=== PATIENT | female | born 1970 | race Hispanic/Latino ===

== ENCOUNTER 2018-12-11 14:46 | Emergency (ER) | payer BC ==
[~2018-12-11] VITALS: Ht 167.6 cm; Wt 86.2 kg
[2018-12-11 16:26] LABS: CLARITY,URINE SL CLOUDY (CLEAR); COLOR,URINE YELLOW (YELLOW)
[2018-12-11 16:27] LABS: BILIRUBIN,URINE NEGATIVE (NEGATIVE); KETONES,URINE NEGATIVE (NEGATIVE); LEUKOCYTE ESTERASE ,URINE NEGATIVE (NEGATIVE); NITRITE,URINE NEGATIVE (NEGATIVE); PROTEIN,URINE DIPSTICK NEGATIVE (NEGATIVE); URINE UROBILINOGEN 0.2 mg/dL (0.2 - 1)
[2018-12-11] MEDS ORDERED: ALBUTEROL/IPRATROPIUM 3 ML NEB NEB ONE ×2 (16:30→20:45)
[2018-12-11 16:37] LABS: BACTERIA,URINE RARE /HPF; EPITHELIAL CELLS,URINE FEW /LPF
--- NOTE | 2018-12-11 18:03 | Diagnostic Imaging Report ---
EXAMINATION: PA and lateral views of the chest. COMPARISON: None CLINICAL HISTORY: Trouble breathing, cough for 3 weeks DISCUSSION: Lines/tubes: None. Lungs: The lungs are well inflated and clear. There is no evidence of pneumonia or pulmonary edema. Pleura: There is no pleural effusion or pneumothorax. Heart and mediastinum: Cardiomediastinal silhouette is unremarkable. Pulmonary vasculature is normal. Bones and soft tissues: No acute bony abnormalities. Degenerative changes in the thoracic spine IMPRESSION: No acute cardiopulmonary abnormalities. Signed by: Dr. Thuan Montilla M.D. on 12/11/2018 6:00 PM
--- NOTE | 2018-12-11 20:25 | NUR ---
RT CALLED FOR NEB TREATMENT. PT TO DC HOME AFTER TREATMENT
[2018-12-11 20:36] VITALS: BP 149/90
--- NOTE | 2018-12-11 20:43 | NUR ---
RT TO [facility] WITH NEB TREATMENT FOR PATIENT
== END 2018-12-11 20:59 | disposition home or self-care (01) ==
LOC: ER 14:46
DX: R50.9 Fever, unspecified (principal); R05 Cough; J06.9 Acute upper respiratory infection, unspecified; J02.9 Acute pharyngitis, unspecified
CPT/HCPCS: 71046; 81001; 87400; 94640; 99283